=== PATIENT | female | born 1980 | race Caucasian/White ===

== ENCOUNTER 2018-01-25 11:40 | Emergency (ER) | payer SELFPAY ==
[~2018-01-25] VITALS: Ht 165.1 cm; Wt 85.7 kg
[2018-01-25 12:49] LABS: BILIRUBIN,URINE NEGATIVE (NEG); CLARITY,URINE CLEAR; COLOR,URINE ORANGE; NITRITE,URINE POSITIVE (NEG); PH,URINE 6.5; PROTEIN,URINE NEGATIVE (NEG-TRACE)
[2018-01-25] MEDS ORDERED: IV NORMAL SALINE 1000ML BAG 1,000 ML IV ONE (13:00)
[2018-01-25 13:06] LABS: SQUAMOUS EPITHELIAL CELL,UR MOD /LPF
[2018-01-25 13:08] LABS: BACTERIA,URINE 0 /HPF (0-FEW)
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
[2018-01-25 13:20] LABS: U PREG PATIENT NEGATIVE (NEG)
[2018-01-25 13:23] LABS: BASO % 1 % (0-3); EOS # 0.1 x10^3/uL (0.0-0.7); EOS % 2 % (0-3); HEMOGLOBIN 13.1 g/dL (12.0-15.5); LYMPH # 2.1 x10^3/uL (1.0-4.8); LYMPH % 34 % (24-48); MEAN CORPUSCULAR HEMOGLOBIN 32 pg (25-35); MEAN CORPUSCULAR HGB CONC 35 g/dL (31-37); MEAN CORPUSCULAR VOLUME 89 fL (79-100); MONO # 0.4 x10^3/uL (0.0-1.1); MONO % 6 % (0-9); NEUT # 3.6 x10^3uL (1.8-7.7); NEUT % 58 % (31-73); PLATELET COUNT 213 x10^3/uL (140-400); RED BLOOD COUNT 4.15 x10^6/uL (3.50-5.40); RED CELL DISTRIBUTION WIDTH 12.8 % (11.5-14.5); WHITE BLOOD COUNT 6.3 x10^3/uL (4.0-11.0)
[2018-01-25] MEDS ORDERED: KETOROLAC 15 MG/ML VIAL. IV ONE (13:30)
[2018-01-25 13:39] LABS: ALBUMIN 3.7 g/dL (3.4-5.0); ALBUMIN/GLOBULIN RATIO 1.1 (1.0-1.7); CREATININE 0.8 mg/dL (0.6-1.0); GFR 79.9; MAGNESIUM 1.8 mg/dL (1.8-2.4); TOTAL BILIRUBIN 0.4 mg/dL (0.2-1.0)
[2018-01-25 13:40] VITALS: BP 148/89
[2018-01-25] MEDS ORDERED: cefTRIAXone IM 250 MG VIAL IM ONE (13:45)
[2018-01-25] MEDS ORDERED: AZITHROMYCIN 250 MG TABLET. PO ONE (13:45)
[2018-01-25] MEDS ORDERED: POTASSIUM CHLORIDE 20 MEQ TABLET.ER. PO ONE (14:15)
--- NOTE | 2018-01-25 14:32 | RAD ---
Bilateral lower extremity venous doppler ultrasound History: Calf pain Comparison: None Findings: Multiple grayscale, color, and duplex spectral analysis sonographic images were acquired of the bilateral lower extremity veins to evaluate for the presence of DVT. There is normal phasicity. Normal compression, color-flow, and augmentation is demonstrated from the bilateral common femoral to the popliteal veins. There is normal color flow of the proximal greater saphenous and profunda femoris veins. There is normal color flow of segments of the calf veins. Impression: 1. There is no evidence of deep venous thrombosis from the bilateral common femoral to popliteal veins. Electronically signed by: Altaf Ramirez MD (01/25/2018 2:28 PM) [id number]
[2018-01-25] MEDS ORDERED: POTA20TA82 PO (15:18)
[2018-01-25] MEDS ORDERED: CEPH-264 PO (15:18)
[2018-01-25] MEDS ORDERED: METR500T PO (15:18)
[2018-01-28 13:26] LABS: GC PROBE Positive (Negative)
== END 2018-01-25 15:28 | disposition home or self-care (01) ==
LOC: ER 11:40
DX: N30.00 Acute cystitis without hematuria (principal); N76.0 Acute vaginitis; E87.6 Hypokalemia; M79.605 Pain in left leg; M79.604 Pain in right leg; B96.89 Other specified bacterial agents as the cause of diseases classified elsewhere; F32.9 Major depressive disorder, single episode, unspecified; Z90.49 Acquired absence of other specified parts of digestive tract; Z91.040 Latex allergy status
CPT/HCPCS: 36415; 80053; 81001; 81025; 83735; 85025; 87086; 87491; 87591; 93970; 96372; 96374; 99284; J0696; J1885; J7030; Q0111; Q0144